=== PATIENT | male | born 1970 | race Caucasian/White ===

== ENCOUNTER 2019-02-22 15:44 | Emergency (ER) | payer MEDICAID ==
[~2019-02-22] VITALS: Ht 182.9 cm; Wt 122.5 kg
[2019-02-22] MEDS ORDERED: IBUPROFEN 800 MG TAB PO ONE (21:00)
[2019-02-22] MEDS ORDERED: TETANUS-DIPTH-ACEL PERTUSSIS 0.5ML SYRG IM ONE (21:00)
[2019-02-22 21:10] VITALS: BP 159/79
== END 2019-02-22 21:25 | disposition home or self-care (01) ==
LOC: ER 15:44 → EDBD 15:44 → ER 21:25
DX: S61.431A Puncture wound without foreign body of right hand, initial encounter (principal); F17.210 Nicotine dependence, cigarettes, uncomplicated; F12.90 Cannabis use, unspecified, uncomplicated; W29.4XXA Contact with nail gun, initial encounter; Y93.89 Activity, other specified; Y99.8 Other external cause status; Y92.89 Other specified places as the place of occurrence of the external cause
CPT/HCPCS: 73130; 90471; 90715

== ENCOUNTER 2021-08-06 14:11 | Emergency (ER) | payer MEDICAID ==
[~2021-08-06] VITALS: Ht 185.4 cm; Wt 117.9 kg
[2021-08-06] MEDS ORDERED: NAP500T PO (23:17)
[2021-08-06] MEDS ORDERED: KETOROLAC TROMETH 60MG/2ML VIAL IM ONE (23:30)
[2021-08-07 00:11] VITALS: BP 158/68
[2021-08-07] MEDS ORDERED: IBUP800T27 PO (14:42)
[2021-08-07] MEDS ORDERED: METH750T22 PO (14:42)
== END 2021-08-07 00:18 | disposition home or self-care (01) ==
LOC: ER 14:11
DX: S39.011A Strain of muscle, fascia and tendon of abdomen, initial encounter (principal); F17.210 Nicotine dependence, cigarettes, uncomplicated; X58.XXXA Exposure to other specified factors, initial encounter; Y93.89 Activity, other specified; Y92.89 Other specified places as the place of occurrence of the external cause; Y99.8 Other external cause status
CPT/HCPCS: 96372; 99283; J1885

== ENCOUNTER 2021-08-07 14:10 | Emergency (ER) | payer MEDICAID ==
[~2021-08-07] VITALS: Ht 185.4 cm; Wt 102.1 kg
[~2021-08-07 14:10] MED LIST: NAP500T PO
[2021-08-07] MEDS ORDERED: METH750T22 PO (14:42)
[2021-08-07] MEDS ORDERED: IBUP800T27 PO (14:42)
[2021-08-07 14:48] VITALS: BP 139/76
== END 2021-08-07 14:55 | disposition home or self-care (01) ==
LOC: ER 14:10
DX: S39.013A Strain of muscle, fascia and tendon of pelvis, initial encounter (principal); F17.210 Nicotine dependence, cigarettes, uncomplicated; Z79.1 Long term (current) use of non-steroidal anti-inflammatories (NSAID); Z79.899 Other long term (current) drug therapy; X58.XXXA Exposure to other specified factors, initial encounter; Y93.89 Activity, other specified; Y92.89 Other specified places as the place of occurrence of the external cause; Y99.8 Other external cause status

== ENCOUNTER 2023-05-20 09:43 | Emergency (ER) | payer MEDICAID ==
[~2023-05-20] VITALS: Ht 185.4 cm; Wt 120.2 kg
[~2023-05-20 09:43] MED LIST changes: +IBUP-1456 PO; +METH-1182 PO
[2023-05-20] MEDS ORDERED: KETOROLAC TROMETH 60MG/2ML VIAL IM ONE (10:30)
[2023-05-20] MEDS ORDERED: HYDROcodone-ACET 10/325MG TAB PO ONE (10:30)
[2023-05-20 10:39] VITALS: BP 152/61; PULSE 76; RESP 16; TEMP 97.5; O2SAT 96
[2023-05-20] MEDS ORDERED: IBUP-1455 PO (11:31)
[2023-05-20] MEDS ORDERED: TRAM50TA2 PO (11:31)
== END 2023-05-20 11:33 | disposition home or self-care (01) ==
LOC: ER 09:43
DX: M23.91 Unspecified internal derangement of right knee (principal); F17.210 Nicotine dependence, cigarettes, uncomplicated; F12.10 Cannabis abuse, uncomplicated
CPT/HCPCS: 73562; 96372; 99283; J1885

== ENCOUNTER 2023-09-03 11:53 | Emergency (ER) | payer MEDICAID ==
[~2023-09-03] VITALS: Ht 185.4 cm; Wt 120.0 kg
[~2023-09-03 11:53] MED LIST changes: +IBUP-1455 PO; +TRAM50TA2 PO
[2023-09-03 13:25] VITALS: BP 121/59; PULSE 71; RESP 16; TEMP 97.2; O2SAT 97
[2023-09-03] MEDS ORDERED: IBUP-1456 PO (13:29)
[2023-09-03] MEDS: KETOROLAC TROMETH 60MG/2ML VIAL IM ONE (13:33)
== END 2023-09-03 13:56 | disposition home or self-care (01) ==
LOC: ER 11:53
DX: M23.92 Unspecified internal derangement of left knee (principal); F17.210 Nicotine dependence, cigarettes, uncomplicated; Z79.1 Long term (current) use of non-steroidal anti-inflammatories (NSAID); Z79.899 Other long term (current) drug therapy
CPT/HCPCS: 73562; 96372; 99283; J1885